=== PATIENT | female | born 1975 | race Caucasian/White ===

== ENCOUNTER 2016-10-18 13:47 | Emergency (ER) | payer MEDICAID ==
[~2016-10-18] VITALS: Ht 152.4 cm; Wt 84.0 kg
[2016-10-18 13:55] VITALS: BP 116/76
[2016-10-18] MEDS ORDERED: NACL 0.9% 1,000 ML IV SCH (13:59)
[2016-10-18] MEDS ORDERED: FAMOTIDINE 20 MG/2 ML VIAL IVP ONE (14:00)
[2016-10-18] MEDS ORDERED: ONDANSETRON 4 MG/2 ML VIAL IVP ONE (14:00)
[2016-10-18 14:18] LABS: BASOPHILS # (AUTO) 0.1 K/uL (0.00-0.22); BASOPHILS % (AUTO) 1.2 % (0.0-2.0); EOSINOPHILS # (AUTO) 0.2 K/uL (0-0.4); EOSINOPHILS % (AUTO) 2.4 % (0.0-4.0); HEMATOCRIT 40.8 % (36-48); HEMOGLOBIN 12.6 g/dL (12.0-16.0); LYMPHOCYTES # (AUTO) 1.9 K/uL (2.5-16.5); LYMPHOCYTES % (AUTO) 27.9 % (20.5-51.1); MEAN CORPUSCULAR HEMOGLOBIN 24 pg (27-31); MEAN CORPUSCULAR HGB CONC 31 g/dL (33-37); MEAN CORPUSCULAR VOLUME 77 fL (80-94); MONOCYTES # (AUTO) 0.3 K/uL (0.8-1.0); MONOCYTES % (AUTO) 4.5 % (1.7-9.3); NEUTROPHILS # (AUTO) 4.2 K/uL (1.8-7.7); PLATELET COUNT (AUTO) 281 K/uL (140-450); RED BLOOD CELL COUNT(AUTO) 5.33 MIL/uL (4.20-5.40); RED CELL DISTRIBUTION WIDTH 15.4 % (11.6-13.7); WHITE BLOOD COUNT (AUTO) 6.7 K/uL (4.8-10.8)
[2016-10-18 14:39] LABS: ALBUMIN 3.5 g/dL (3.4-5.0); CARBON DIOXIDE 27.1 mmol/L (21-32); CREATININE 0.7 mg/dL (0.6-1.3); POTASSIUM 4.1 mmol/L (3.5-5.1); TOTAL BILIRUBIN 0.4 mg/dL (0.0-1.0)
[2016-10-18] MEDS ORDERED: HYDROmorphone 1 MG/ML AMP IVP ONE (15:50)
[2016-10-18] MEDS ORDERED: ACETAMINOPHEN 650 MG/20.3 ML UDC PO ONE (16:00)
[2016-10-18] MEDS ORDERED: ACETAMINOPHEN 325 MG TAB ONE (16:04)
[2016-10-18 16:36] LABS: APPEARANCE,URINE CLOUDY (CLEAR); BILIRUBIN,URINE NEGATIVE (NEGATIVE); BLOOD, URINE 3+ (NEGATIVE); COLOR,URINE RED (YELLOW); LEUKOCYTE ESTERASE ,URINE NEGATIVE (NEGATIVE); NITRITE, URINE NEGATIVE (NEGATIVE); PH,URINE 5.5 (5.0-9.0); PROTEIN,URINE 2+ (NEGATIVE); UGLUCOSE NEGATIVE (NEGATIVE); UROBILINOGEN,URINE 0.2 EU/dL (0.2 - 1)
[2016-10-18 16:44] LABS: BACTERIA,URINE FEW /HPF (None Seen); RBC,URINE TOO NUMEROUS TO COUN /HPF (0-5); SQUAMOUS EPITHELIAL CELL,UR 0-5 /LPF (0-3 (FEW)); WBC,URINE 0-5 /HPF (0-5)
[2016-10-18 17:10] VITALS: BP 110/73
== END 2016-10-18 17:12 | disposition home or self-care (01) ==
LOC: MED 13:47
DX: K21.9 Gastro-esophageal reflux disease without esophagitis (principal); Z90.49 Acquired absence of other specified parts of digestive tract
CPT/HCPCS: 36415; 74176; 80053; 81001; 81025; 82150; 83690; 85025; 96361; 96374; 96375; 99285; J2405; J3490; J7030; J1170

== ENCOUNTER 2017-09-18 18:30 | Emergency (ER) | payer MEDICAID ==
[~2017-09-18] VITALS: Ht 152.4 cm; Wt 86.7 kg
[2017-09-18 18:35] VITALS: BP 131/73
--- NOTE | 2017-09-18 18:44 | NUR ---
42 YO TO ER W/C/O LOWER BACK PAIN X2 DAYS. PT STATES PAIN STARTED WHILE CLEANING. NO APPARENT INJURY NOR DEFORMITY. PT DID NOT TAKING ANY PAIN MEDS THAT PROVIDE RELIEF FOR PAIN TODAY. PT AAOX4. [facility]CS 15. CMS INTACT. PT AMBULATORY W/ STEADY GAIT. RR EVEN AND UNLABORED. LUNGS CLEAR. ABD SOFT, NON-TENDER. ER MD NOTIFIED. PT NEEDS MET. SAFETY PRECAUTIONS IN PLACE. WILL CONTINUE TO MONITOR.
--- NOTE | 2017-09-18 18:49 | NUR ---
Dr. Bellamy evaluating patient at bedside.
[2017-09-18] MEDS ORDERED: KETOROLAC 60 MG/2 ML VIAL IM ONE (19:00)
[2017-09-18] MEDS ORDERED: traMADol 50 MG TAB PO ONE (19:00)
--- NOTE | 2017-09-18 19:09 | NUR ---
TRANSFER OF CARE AT THIS TIME. REPORT GIVEN TO KEDAR VINSON
--- NOTE | 2017-09-18 19:18 | NUR ---
Patient discharged with v/s stable. Written and verbal after care instructions given and explained. Patient alert, oriented and verbalized understanding of instructions. Ambulatory with steady gait. All questions addressed prior to discharge. ID band removed. Patient advised to follow up with PMD. Rx of NAPROSYN AND TRAMADOL given. Patient educated on indication of medication including possible reaction and side effects. Opportunity to ask questions provided and answered.
[2017-09-18 19:19] VITALS: BP 131/73
== END 2017-09-18 19:18 | disposition home or self-care (01) ==
LOC: MED 18:30
DX: S39.012A Strain of muscle, fascia and tendon of lower back, initial encounter (principal); E11.9 Type 2 diabetes mellitus without complications; Z90.49 Acquired absence of other specified parts of digestive tract; X58.XXXA Exposure to other specified factors, initial encounter; Y93.89 Activity, other specified; Y92.89 Other specified places as the place of occurrence of the external cause; Y99.8 Other external cause status
CPT/HCPCS: 82948; 96372; 99283; J1885